=== PATIENT | male | born 1975 | race African-American/Black ===

== ENCOUNTER 2018-06-14 03:29 | Emergency (ER) | payer MEDICAID ==
[~2018-06-14] VITALS: Ht 180.3 cm; Wt 190.5 kg
--- NOTE | 2018-06-14 03:35 | NUR ---
Lew gutiérrez in ED - 06/14/[address] Bae at [facility] for MSE.
--- NOTE | 2018-06-14 03:38 | NUR ---
Dr. Bae at bedside for MSE.
[2018-06-14] MEDS ORDERED: PHENYLEPHRINE 1% (EXTRA STR) NASAL SPRAY NS ONE ×2 (03:41→04:30)
[2018-06-14] MEDS ORDERED: LIDOCAINE 4% TOPICAL 50 ML BOTTLE ONE (03:42)
[2018-06-14] MEDS ORDERED: CLONIDINE HCL 0.1 MG TABLET ONE (03:51)
--- NOTE | 2018-06-14 04:24 | NUR ---
Patient discharged to home in stable conditon. Written and verbal after care instructions given. Patient verbalizes understanding of instructions. Patient ambulated out of ER with steady gait, no acute signs of distress, VSS, all belongings taken.
[2018-06-14] MEDS ORDERED: CLONIDINE HCL 0.1 MG TABLET PO ONE (04:30)
[2018-06-14 04:33] VITALS: BP 151/84
== END 2018-06-14 04:34 | disposition home or self-care (01) ==
LOC: ER 03:30
DX: R04.0 Epistaxis (principal); I10 Essential (primary) hypertension
CPT/HCPCS: 30901; A4663

== ENCOUNTER 2019-10-07 19:22 | Inpatient (IN) | payer MEDICAID, OTHER ==
[~2019-10-07] VITALS: Ht 180.3 cm; Wt 189.1 kg
[2019-10-07] MEDS ORDERED: [UNRECOGNIZED DRUG - REMARK] (19:32)
[2019-10-07] MEDS ORDERED: MORPHINE SULFATE 4 MG/1 ML DISP.SYRIN ONE (19:57)
[2019-10-07] MEDS ORDERED: MORPHINE SULFATE 4 MG/1 ML DISP.SYRIN IM ONE (20:00)
[2019-10-07 20:32] LABS: *AMPHETAMINE, URINE NEGATIVE (NEGATIVE); *BARBITURATE, URINE NEGATIVE (NEGATIVE); *CANNABINOID, URINE POSITIVE (NEGATIVE); *COCCAINE, URINE NEGATIVE (NEGATIVE); *OPIATE, URINE POSITIVE (NEGATIVE); *PHENCYCLIDINE SCREEN,URINE NEGATIVE (NEGATIVE)
[2019-10-07] MEDS ORDERED: LORAZEPAM 2 MG/1 ML VIAL IV ONE ×2 (20:45→23:30)
--- NOTE | 2019-10-07 20:50 | NUR ---
Ultrasound at bedside.
[2019-10-07 20:51] LABS: BASOPHILS # (AUTO) 0.1 K/uL (0.0-8.0); BASOPHILS % (AUTO) 0.5 % (0.0-2.0); EOSINOPHILS # (AUTO) 0.2 K/uL (0.0-0.7); EOSINOPHILS % (AUTO) 0.9 % (0.0-7.0); HEMATOCRIT 43.6 % (36.7-47.1); HEMOGLOBIN 14.2 g/dL (12.5-16.3); LYMPHOCYTES % (AUTO) 21.3 % (20.5-51.5); MEAN CORPUSCULAR HEMOGLOBIN 28.7 uug (23.8-33.4); MEAN CORPUSCULAR HGB CONC 33 g/dL (32.5-36.3); MEAN CORPUSCULAR VOLUME 88.2 fL (73.0-96.2); MONOCYTES # (AUTO) 1.1 K/uL (2.0-10.0); MONOCYTES % (AUTO) 5.8 % (0.0-11.0); NEUTROPHILS # (AUTO) 13.4 K/uL (1.8-8.9); NEUTROPHILS % (AUTO) 71.5 % (38.5-71.5); PLATELET COUNT (AUTO) 291 K/uL (152-348); RED BLOOD CELL COUNT(AUTO) 4.94 MIL/uL (4.06-5.63); WHITE BLOOD COUNT (AUTO) 18.8 K/uL (3.6-10.2)
[2019-10-07 21:06] LABS: ALANINE AMINOTRANSFERASE 17 U/L (16-63); ALKALINE PHOSPHATASE 106 U/L (50-136); ASPARTATE AMINOTRANSFERASE 17 U/L (15-37); BILIRUBIN,TOTAL 0.4 mg/dL (0.2-1.0); CARBON DIOXIDE 33 mmol/L (21-32); CHLORIDE 107 mmol/L (98-107); ETHANOL < 3 MG/DL (0-0); GLUCOSE 132 mg/dL (74-106); TOTAL PROTEIN, SERUM 8.4 g/dL (6.4-8.2)
[2019-10-07 21:20] LABS: CREATININE 1.1 mg/dL (0.6-1.3); UREA NITROGEN, BLOOD 17 mg/dL (7-18)
[2019-10-07] MEDS ORDERED: HYDROMORPHONE 1 MG/1 ML DISP.SYRIN ONE (21:26)
[2019-10-07] MEDS ORDERED: HYDROMORPHONE 1 MG/1 ML DISP.SYRIN IV ONE (21:30)
--- NOTE | 2019-10-07 22:20 | NUR ---
Called EP[facility] to dereje Trejo NP.
--- NOTE | 2019-10-07 22:40 | NUR ---
Patient accepted for admission to [facility] by Be Trejo BUMPER STRAIGHTENER, Diagnosis: Intractable pain. Be Trejo at bedside for MSE.
[2019-10-07] MEDS ORDERED: CLONIDINE HCL 0.1 MG TABLET PO ONE (22:45)
[2019-10-07] MEDS ORDERED: VANCOMYCIN 1G/D5W 200 ML PIGGYBACK IV ONE (22:45)
[2019-10-07] MEDS ORDERED: IV NS 1000 ML 1,000 ML IV ONE ×2 (22:45)
[2019-10-07] MEDS ORDERED: KETAMINE HCL 100 MG in IV NORMAL SALINE 100 ML IV ONE (23:00)
[2019-10-07] MEDS ORDERED: LORAZEPAM 2 MG/1 ML VIAL ONE (23:02)
[2019-10-07] MEDS ORDERED: KETAMINE HCL 500 MG/10 ML INJ ONE (23:03)
[2019-10-07] MEDS ORDERED: MAGNESIUM HYDROXIDE 30 ML LIQUID UDC PO PRN (23:30)
[2019-10-07] MEDS ORDERED: LORAZEPAM 2 MG/1 ML VIAL IV PRN (23:30)
[2019-10-07] MEDS ORDERED: ACETAMINOPHEN 325 MG TABLET PO PRN (23:30)
[2019-10-07] MEDS ORDERED: ONDANSETRON 4 MG/2 ML VIAL IV PRN (23:30)
[2019-10-08] MEDS ORDERED: HYDROMORPHONE 1 MG/1 ML DISP.SYRIN IV ONE (00:15)
[2019-10-08 01:15] VITALS: BP 154/92
--- NOTE | 2019-10-08 01:54 | NUR ---
Report given to Beverley MCDONOUGH Tele.
[2019-10-08] MEDS ORDERED: CLONIDINE-TTS 1 PATCH TD ONE (02:06)
[2019-10-08] MEDS: CLONIDINE-TTS 1 PATCH TD SCH ×2 (02:29→02:31)
[2019-10-08 04:21] VITALS: BP 153/90
--- NOTE | 2019-10-08 05:45 | NUR ---
PATIENT RECEIVED FROM ER. AAOX2. PATIENT DOZING OFF DURING QUESTIONING FOR ADMISSIONS PROCESS. PRIOR CHARTING IN ER OBSERVED. IV ON LEFT HAND 20G. NO S/S OF ACUTE DISTRESS. V/S STABLE. BP STABLE ON RN SHIFT SINCE RECEIVING FROM ER. SAFETY PRECAUTIONS IN PLACE. XEROFORM AND GAUZE WRAPPED ON LEFT CALF ON OPEN ULCER. WOUND CONSULT PENDING. MEDICATIONS ADMINISTERED. ATIVAN ADMINISTERED. DILAUDID ADMINISTERED AND UNABLE TO SCAN AT CORRECT TIME. COMPUTER SHUT OFF AFTER SCANNING OF MEDICATION AND UNSAVED. MEDICATION CHECKED. EXPIRATION CHECKED. GAIT STEADY AND BRP. WILL CONTINUE TO MONITOR AND ASSESS.
[2019-10-08 06:39] LABS: BASOPHILS # (AUTO) 0.1 K/uL (0.0-8.0); BASOPHILS % (AUTO) 0.3 % (0.0-2.0); EOSINOPHILS # (AUTO) 0.1 K/uL (0.0-0.7); EOSINOPHILS % (AUTO) 0.4 % (0.0-7.0); HEMATOCRIT 39.8 % (36.7-47.1); LYMPHOCYTES # (AUTO) 3.2 K/uL (20.0-40.0); MEAN CORPUSCULAR HEMOGLOBIN 28.8 uug (23.8-33.4); MEAN CORPUSCULAR HGB CONC 33 g/dL (32.5-36.3); MEAN CORPUSCULAR VOLUME 88.2 fL (73.0-96.2); MONOCYTES # (AUTO) 1.6 K/uL (2.0-10.0); MONOCYTES % (AUTO) 7.6 % (0.0-11.0); NEUTROPHILS # (AUTO) 16.4 K/uL (1.8-8.9); NEUTROPHILS % (AUTO) 76.7 % (38.5-71.5); PLATELET COUNT (AUTO) 285 K/uL (152-348); RED BLOOD CELL COUNT(AUTO) 4.51 MIL/uL (4.06-5.63); WHITE BLOOD COUNT (AUTO) 21.4 K/uL (3.6-10.2)
[2019-10-08 06:50] LABS: BILIRUBIN,TOTAL 0.5 mg/dL (0.2-1.0); CREATININE 0.9 mg/dL (0.6-1.3); MAGNESIUM 1.8 mg/dL (1.8-2.4); PHOSPHOROUS 3.9 mg/dL (2.5-4.9); POTASSIUM 3.6 mmol/L (3.5-5.1); TOTAL PROTEIN, SERUM 7.4 g/dL (6.4-8.2)
[2019-10-08 06:56] LABS: THYROID STIMULATING HORMONE 1.049 mIU/mL (0.358-3.740)
--- NOTE | 2019-10-08 07:00 | NUR ---
Received patient calm and lying in bed. tax analyst is on and sinus tachycardic. Left hand 22G IV patent. No signs and symptoms of acute distress. Right ankle wound covered. Safety precautions initiated and will continue to monitor.
--- NOTE | 2019-10-08 08:58 | NUR ---
Clinical Pharmacy Note: Vancomycin Dosing per Pharmacy Subjective: To start Vancomycin IV on this 44 male patient for cellulitis Objective: BUN 14/Scr 0.9 WBC 21.4 Temperature 98.7 ht 180 cm wt 189 kg Assessment/Plan: Will start vanco 2500mg IVPB q9h for predicted vanco trough level of 15 mcg/ml a steady state. 1st dose today at 0900. Will order vanco trough level before 4th dose (not yet ordered). Will follow
[2019-10-08] MEDS: VANCOMYCIN IV 2,500 MG in IV DEXTROSE 5% 500 ML IV SCH ×2 (09:15→17:06)
--- NOTE | 2019-10-08 10:43 | NUR ---
SEEN BY HOSPITALIST RODRIGO REVIEWED PLAN OF CARE. CALLED FOR ID FOLLOW-UP FOR CELLULITIS RIGHT LEG. CONTINUE IV ANTIBIOTICS ORDERED
[2019-10-08] MEDS ORDERED: IV NS 1000 ML 1,000 ML IV ONE (10:45)
[2019-10-08] MEDS ORDERED: AMLO10TA7 PO (10:53)
[2019-10-08] MEDS ORDERED: LOSA100T3 PO (10:53)
[2019-10-08] MEDS ORDERED: METO25TA3 PO (10:53)
[2019-10-08] MEDS ORDERED: FUROSEMIDE 20 MG/2 ML VIAL IV ONE (11:00)
[2019-10-08] MEDS: LOSARTAN POTASSIUM 50 MG TABLET PO SCH (11:21)
[2019-10-08] MEDS: AMLODIPINE 10 MG TABLET PO SCH (11:21)
[2019-10-08] MEDS: METOPROLOL SUCCINATE XL 25 MG TAB.SR.24H PO SCH (11:21)
[2019-10-08 12:00] VITALS: BP 148/87
[2019-10-08] MEDS: HYDROCODONE/APAP 5-325MG TABLET PO PRN ×2 (12:20→17:02)
[2019-10-08 16:33] VITALS: BP 169/86
[2019-10-08] MEDS: hydrALAZINE HCL 20 MG/1 ML VIAL IV PRN (16:57)
--- NOTE | 2019-10-08 17:23 | NUR ---
NO REACTION FROM ANTIBIOTIC, RIGHT LEG CELLULITIS DRAINING LARGE AMOUNT OF YELLOW THICK DRAINAGE. DRESSING CHANGE ORDERED PENDING WOUND CONSULT. IV ANTIBIOTIC VANCO PER PHARMACY TO DOSE. NO REACTION NOTED
--- NOTE | 2019-10-08 19:30 | NUR ---
received patient lying in bed sleeping. vaco running from morning shift. once completed will follow up with one dose of NS 1L. PIV in tact and patent. AAOX3. BRP with minimal assist. c/o of pain in the right leg. wound care provided on previous shift. will follow up. wound care pending. safety measure in place. call light in place, side rails upx2 and bed alarm on. will continue to monitor and assess.
[2019-10-08] MEDS: HYDROMORPHONE 1 MG/1 ML DISP.SYRIN IV PRN (20:12)
[2019-10-08 20:36] VITALS: BP 156/84
[2019-10-09] MEDS: VANCOMYCIN IV 2,500 MG in IV DEXTROSE 5% 500 ML IV SCH ×3 (02:31→20:10)
[2019-10-09] MEDS: HYDROMORPHONE 1 MG/1 ML DISP.SYRIN IV PRN (03:07)
[2019-10-09 05:31] VITALS: BP 151/88
--- NOTE | 2019-10-09 07:40 | NUR ---
AWAKE ALERT AND VERBALLY RESPONSIVE , NO SS OF SOB OR DISTRESS AWAITING ID CONSULT FOR CELLULITIS AND ELEVATED WBC. NOTED LOW GRADE FEVER WILL FOLLOW-UP WITH HOSPITALIST
--- NOTE | 2019-10-09 07:53 | NUR ---
SEEN BY MEDICAL HOSPITALIST SEE NOTES.
[2019-10-09] MEDS: LOSARTAN POTASSIUM 50 MG TABLET PO SCH (08:01)
[2019-10-09] MEDS: HYDROCODONE/APAP 5-325MG TABLET PO PRN ×3 (08:01→22:23)
[2019-10-09] MEDS: METOPROLOL SUCCINATE XL 25 MG TAB.SR.24H PO SCH (08:02)
[2019-10-09] MEDS: AMLODIPINE 10 MG TABLET PO SCH (08:02)
[2019-10-09 11:42] VITALS: BP 136/70
[2019-10-09 11:47] LABS: BASOPHILS # (AUTO) 0.1 K/uL (0.0-8.0); BASOPHILS % (AUTO) 0.5 % (0.0-2.0); EOSINOPHILS # (AUTO) 0.1 K/uL (0.0-0.7); EOSINOPHILS % (AUTO) 0.5 % (0.0-7.0); HEMATOCRIT 42.2 % (36.7-47.1); HEMOGLOBIN 13.9 g/dL (12.5-16.3); LYMPHOCYTES # (AUTO) 3.6 K/uL (20.0-40.0); LYMPHOCYTES % (AUTO) 21.9 % (20.5-51.5); MEAN CORPUSCULAR HEMOGLOBIN 28.9 uug (23.8-33.4); MEAN CORPUSCULAR HGB CONC 33 g/dL (32.5-36.3); MEAN CORPUSCULAR VOLUME 88.1 fL (73.0-96.2); MONOCYTES # (AUTO) 1.2 K/uL (2.0-10.0); MONOCYTES % (AUTO) 7.6 % (0.0-11.0); NEUTROPHILS # (AUTO) 11.3 K/uL (1.8-8.9); NEUTROPHILS % (AUTO) 69.5 % (38.5-71.5); PLATELET COUNT (AUTO) 272 K/uL (152-348); RED BLOOD CELL COUNT(AUTO) 4.79 MIL/uL (4.06-5.63); WHITE BLOOD COUNT (AUTO) 16.3 K/uL (3.6-10.2)
[2019-10-09 11:57] LABS: BILIRUBIN,TOTAL 0.8 mg/dL (0.2-1.0); POTASSIUM 3.7 mmol/L (3.5-5.1); TOTAL PROTEIN, SERUM 8.2 g/dL (6.4-8.2)
--- NOTE | 2019-10-09 12:00 | NUR ---
NO ACUTE CHANGE, UP AD SARAH INDEPENDENTLY. PLEASANT AND COOPERATIVE. WOUND STILL DRAINING LARGE AMOUNT OF YELLOW DRAINAGE. AFEBRILE
--- NOTE | 2019-10-09 13:01 | NUR ---
Clinical Pharmacy Note: Vancomycin Dosing per Pharmacy Subjective: To start Vancomycin IV on this 44 male patient for cellulitis Objective: BUN 11/Scr 1.0 WBC 16.3 Temperature 99 ht 180 cm wt 189 kg Trough today at 1138: 15.4 Assessment/Plan: As trough therapeutic, will continue vanco 2500mg IVPB q9h for now. Will continue to follow and adjust or repeat trough if condition were to change or patient on prolonged course. Will continue to follow
[2019-10-09 15:54] VITALS: BP 154/84
--- NOTE | 2019-10-09 17:53 | NUR ---
CONTINUE IV VANCOMYCIN ORDERED THRU IV, NO SS OF ALLERGY REACTION. CONTINUE PAIN MANAGEMENT. STILL WAITING FOR ID CONSULT
--- NOTE | 2019-10-09 19:38 | NUR ---
Received patient awake and alert in bed, A/Ox4. no signs of acute distress noted. Complained of some pain to the right lower leg, PRN pain medication already given from day shift and says it is effective. No SOB. Dressing to the right lower extremity is intact and patent. ELGIN Morocho seen and examined patient. NNO noted. Heplock on the left hand is intact and patent. Safety measures initiated. Bed is low and locked, call light within reach. Will continue to monitor.
[2019-10-09 20:22] VITALS: BP 147/79
[2019-10-10] MEDS: HYDROMORPHONE 1 MG/1 ML DISP.SYRIN IV PRN ×3 (02:32→20:01)
[2019-10-10] MEDS: VANCOMYCIN IV 2,500 MG in IV DEXTROSE 5% 500 ML IV SCH ×3 (05:40→23:38)
[2019-10-10 05:49] VITALS: BP 159/85
[2019-10-10 06:21] LABS: BASOPHILS # (AUTO) 0.1 K/uL (0.0-8.0); BASOPHILS % (AUTO) 0.7 % (0.0-2.0); EOSINOPHILS % (AUTO) 0.3 % (0.0-7.0); HEMATOCRIT 39.2 % (36.7-47.1); HEMOGLOBIN 12.9 g/dL (12.5-16.3); LYMPHOCYTES # (AUTO) 3.3 K/uL (20.0-40.0); MEAN CORPUSCULAR HEMOGLOBIN 28.8 uug (23.8-33.4); MEAN CORPUSCULAR HGB CONC 33 g/dL (32.5-36.3); MEAN CORPUSCULAR VOLUME 87.6 fL (73.0-96.2); MONOCYTES # (AUTO) 1.5 K/uL (2.0-10.0); MONOCYTES % (AUTO) 9.9 % (0.0-11.0); NEUTROPHILS # (AUTO) 9.9 K/uL (1.8-8.9); NEUTROPHILS % (AUTO) 67.1 % (38.5-71.5); PLATELET COUNT (AUTO) 267 K/uL (152-348); RED BLOOD CELL COUNT(AUTO) 4.48 MIL/uL (4.06-5.63); WHITE BLOOD COUNT (AUTO) 14.8 K/uL (3.6-10.2)
[2019-10-10 06:36] LABS: CREATININE 0.9 mg/dL (0.6-1.3); POTASSIUM 3.3 mmol/L (3.5-5.1)
[2019-10-10] MEDS ORDERED: POTASSIUM CHLORIDE 20 MEQ TAB.PRT.SR PO ONE (07:30)
--- NOTE | 2019-10-10 07:56 | NUR ---
Clinical Pharmacy Note: Vancomycin Dosing per Pharmacy Subjective: To continue Vancomycin IV on this 44 male patient for cellulitis Objective: BUN 9/Scr 0.9 WBC 14.8 Temperature 98.9 ht 180 cm wt 189 kg Trough on 10/08 at 1138: 15.4 Assessment/Plan: As trough therapeutic, will continue same dose of vanco 2500mg IVPB q9h for now. Will continue to follow and adjust or repeat trough if condition were to change or patient on prolonged course. Will continue to follow
[2019-10-10] MEDS: HYDROCODONE/APAP 5-325MG TABLET PO PRN (08:16)
[2019-10-10] MEDS: LOSARTAN POTASSIUM 50 MG TABLET PO SCH (08:17)
[2019-10-10] MEDS: METOPROLOL SUCCINATE XL 25 MG TAB.SR.24H PO SCH (08:17)
[2019-10-10] MEDS: AMLODIPINE 10 MG TABLET PO SCH (08:20)
[2019-10-10 11:30] VITALS: BP 164/96
--- NOTE | 2019-10-10 12:51 | NUR ---
WOUND CARE CONSULT: PT STATES DOES NOT WANT RT LOWER LEG DRESSING REMOVED AT THIS TIME. PT STATES IS DE-TOXING FROM NICOTINE AND DOES NOT FEEL WELL. TEACHER INDUSTRIAL ARTS NOTIFIED. RECOMMEND DPM CONSULT. DR SINGLETARY NOTIFIED OF CONSULT REQUEST. RECOMMENDATIONS MADE FOR SKIN PROTECTION. DISCUSSED WITH NURSING STAFF. PT IS CONTINENT AND INDEPENDENT WITH BED MOBILITY. PT REFUSES BARIATRIC BED. WILL SEE PRN. IN AGREEMENT WITH PLAN OF CARE.
[2019-10-10] MEDS: NICOTINE 21 MG/24HR PATCH TD SCH (15:09)
[2019-10-10 16:00] VITALS: BP 131/78
--- NOTE | 2019-10-10 20:00 | NUR ---
Received patient awake and alert. Patient shows no signs or symptoms of distress at this time. Patient does complain of having 10/10 pain at this time. Blood pressure checked and is 173/101. Patient due for PRN pain medication. Bed set to lowest position. Call light within reach. Side rails x2 are up. Will Addendum: 10/10/19 at 2130 by NUVIA MOTA RN Pain medication to be administered. Blood pressure to be rechecked. Will continue to monitor patient.
[2019-10-10 20:38] VITALS: BP 162/101
--- NOTE | 2019-10-10 21:00 | NUR ---
Blood pressure rechecked and is 150/81. Patient resting comfortably in bed. Will continue to monitor patient.
[2019-10-10 21:04] VITALS: BP 150/81
--- NOTE | 2019-10-10 23:15 | NUR ---
Offered to change dressing on RLE but patient declines to change dressing at this time. As per patient, he reports that wound care nurse changed the dressing earlier today and refuses to have it changed at this time. Will endorse to day shift nurse.
[2019-10-11] MEDS: HYDROMORPHONE 1 MG/1 ML DISP.SYRIN IV PRN ×4 (00:01→14:01)
[2019-10-11 04:00] VITALS: BP 156/91
--- NOTE | 2019-10-11 06:16 | NUR ---
Patient shows no signs or symptoms of distress at this time. Vital signs stable. Patient to be endorsed to day shift nurse in stable condition.
[2019-10-11 06:30] LABS: CREATININE 0.9 mg/dL (0.6-1.3); POTASSIUM 3.4 mmol/L (3.5-5.1)
[2019-10-11 06:37] LABS: BASOPHILS # (AUTO) 0.1 K/uL (0.0-8.0); BASOPHILS % (AUTO) 0.4 % (0.0-2.0); EOSINOPHILS # (AUTO) 0.1 K/uL (0.0-0.7); EOSINOPHILS % (AUTO) 0.8 % (0.0-7.0); HEMATOCRIT 40.7 % (36.7-47.1); HEMOGLOBIN 13.7 g/dL (12.5-16.3); LYMPHOCYTES # (AUTO) 2.7 K/uL (20.0-40.0); MEAN CORPUSCULAR HEMOGLOBIN 29.2 uug (23.8-33.4); MEAN CORPUSCULAR HGB CONC 34 g/dL (32.5-36.3); MEAN CORPUSCULAR VOLUME 86.9 fL (73.0-96.2); MONOCYTES # (AUTO) 1.6 K/uL (2.0-10.0); MONOCYTES % (AUTO) 12.7 % (0.0-11.0); NEUTROPHILS # (AUTO) 8.4 K/uL (1.8-8.9); NEUTROPHILS % (AUTO) 65.1 % (38.5-71.5); PLATELET COUNT (AUTO) 260 K/uL (152-348); RED BLOOD CELL COUNT(AUTO) 4.69 MIL/uL (4.06-5.63); WHITE BLOOD COUNT (AUTO) 12.9 K/uL (3.6-10.2)
--- NOTE | 2019-10-11 07:45 | NUR ---
Clinical Pharmacy Note: Vancomycin Dosing per Pharmacy Subjective: To continue Vancomycin IV on this 44 male patient for cellulitis Objective: BUN 8/Scr 0.9 WBC 12.9 Temperature 98.6 ht 180 cm wt 189 kg Trough on 10/08 at 1138: 15.4 Assessment/Plan: As last trough (10/08) therapeutic, will continue same dose of vanco 2500mg IVPB q9h for now. Will continue to follow and adjust or repeat trough if condition were to change or patient on prolonged course. Will continue to follow
[2019-10-11 08:00] VITALS: BP 157/96
[2019-10-11] MEDS: VANCOMYCIN IV 2,500 MG in IV DEXTROSE 5% 500 ML IV SCH ×2 (08:00→17:36)
[2019-10-11] MEDS: LOSARTAN POTASSIUM 50 MG TABLET PO SCH (08:01)
[2019-10-11] MEDS: NICOTINE 21 MG/24HR PATCH TD SCH (08:01)
[2019-10-11] MEDS: METOPROLOL SUCCINATE XL 25 MG TAB.SR.24H PO SCH (08:02)
[2019-10-11] MEDS: AMLODIPINE 10 MG TABLET PO SCH (08:02)
[2019-10-11] MEDS: HYDROCODONE/APAP 5-325MG TABLET PO PRN ×3 (08:03→20:37)
[2019-10-11] MEDS ORDERED: POTASSIUM CHLORIDE 20 MEQ TAB.PRT.SR PO ONE (09:00)
[2019-10-11 12:00] VITALS: BP 167/73
[2019-10-11] MEDS: hydrALAZINE HCL 20 MG/1 ML VIAL IV PRN ×2 (12:13→16:34)
--- NOTE | 2019-10-11 13:00 | NUR ---
A call from [facility] Mri department and as informed patient unable to have procedure orders due to weight. Ordering DNP called and notified by charge account clerk.
--- NOTE | 2019-10-11 13:01 | NUR ---
MRI JUST GOT APPROVED BY DR. SMITH.
--- NOTE | 2019-10-11 13:21 | NUR ---
UNABLE TO DO MRI PATIENT'S WEIGHT EXCEED THE TABLE LIMITED.
[2019-10-11 16:00] VITALS: BP 170/90
[2019-10-11 18:00] VITALS: BP 144/82
[2019-10-11 20:00] VITALS: BP 133/67
--- NOTE | 2019-10-11 20:00 | NUR ---
Received patient awake and alert. Patient shows no signs or symptoms of distress at this time. Vital signs stable. Pt complains of having 7/10 pain at this time. PRN pain medication to be give when due at 2029. Unable to take photo of right lower ext ulcer. Dr. Stringer does not want wound dressing opened until she can evaluate it tomorrow afternoon. Bed set to lowest position. Call light within reach. Side rails x2 are up. Will continue to monitor patient.
[2019-10-12] MEDS: HYDROMORPHONE 1 MG/1 ML DISP.SYRIN IV PRN ×4 (01:10→19:58)
[2019-10-12] MEDS: VANCOMYCIN IV 2,500 MG in IV DEXTROSE 5% 500 ML IV SCH ×2 (02:18→19:43)
[2019-10-12 04:18] VITALS: BP 152/78
--- NOTE | 2019-10-12 06:36 | NUR ---
Patient shows no signs or symptoms of distress at this time. Vital sign stable. Patient resting comfortably in bed. Will endorse patient to day shift nurse in stable condition.
[2019-10-12 06:45] LABS: BASOPHILS # (AUTO) 0.1 K/uL (0.0-8.0); BASOPHILS % (AUTO) 0.5 % (0.0-2.0); EOSINOPHILS # (AUTO) 0.1 K/uL (0.0-0.7); EOSINOPHILS % (AUTO) 0.7 % (0.0-7.0); HEMATOCRIT 42.1 % (36.7-47.1); HEMOGLOBIN 13.9 g/dL (12.5-16.3); LYMPHOCYTES # (AUTO) 3.3 K/uL (20.0-40.0); LYMPHOCYTES % (AUTO) 25.7 % (20.5-51.5); MEAN CORPUSCULAR HEMOGLOBIN 29.1 uug (23.8-33.4); MEAN CORPUSCULAR HGB CONC 33 g/dL (32.5-36.3); MONOCYTES # (AUTO) 1.8 K/uL (2.0-10.0); MONOCYTES % (AUTO) 13.9 % (0.0-11.0); NEUTROPHILS # (AUTO) 7.7 K/uL (1.8-8.9); NEUTROPHILS % (AUTO) 59.2 % (38.5-71.5); PLATELET COUNT (AUTO) 324 K/uL (152-348); RED BLOOD CELL COUNT(AUTO) 4.78 MIL/uL (4.06-5.63)
[2019-10-12 06:56] LABS: CREATININE 1.1 mg/dL (0.6-1.3); MAGNESIUM 2.3 mg/dL (1.8-2.4); PHOSPHOROUS 4.4 mg/dL (2.5-4.9); POTASSIUM 3.6 mmol/L (3.5-5.1)
--- NOTE | 2019-10-12 08:00 | NUR ---
Received pt in bed asleep but arousable to name and touch. On O2 @ 1L for supplemental since pt complained of slight SOB. JOEY midline flushed and patent. Dressing on right calf noted and pt complained 10/10 pain on the area. Bed locked in lowest position with siderails 2x up. Call light and phone within reach
[2019-10-12] MEDS: NICOTINE 21 MG/24HR PATCH TD SCH (09:00)
--- NOTE | 2019-10-12 09:00 | NUR ---
Wound care not done since Dr. Stringer wants to see wound before wound care
[2019-10-12] MEDS: LOSARTAN POTASSIUM 50 MG TABLET PO SCH (09:31)
[2019-10-12] MEDS: AMLODIPINE 10 MG TABLET PO SCH (09:32)
[2019-10-12] MEDS: METOPROLOL SUCCINATE XL 25 MG TAB.SR.24H PO SCH (09:32)
[2019-10-12] MEDS: HYDROCODONE/APAP 5-325MG TABLET PO PRN ×3 (09:33→22:17)
[2019-10-12 12:00] VITALS: BP 141/59
--- NOTE | 2019-10-12 12:27 | NUR ---
Clinical Pharmacy Note: Vancomycin Dosing per Pharmacy Subjective: To continue Vancomycin IV on this 44 male patient for cellulitis Objective: BUN 4/Scr 1.1 WBC 13 Temperature 98.2 ht 180 cm wt 189 kg Trough on 10/08 at 1138: 15.4 Trough on 10/11 at 1130: 21.5 Assessment/Plan: Since vanco trough today is 21.5 mcg/ml, will change dose to vanco 2500mg IVPB q11h for predicted vanco trough level of 15 mcg/ml at steady state. 1st dose today at 1700. Plan to order vanco trough level before 4th dose (not yet ordered). Will continue to follow
--- NOTE | 2019-10-12 13:45 | NUR ---
Dr. Stringer came in to check wound on right calf, wound culture done. Cleaned and dressing change done by MD. Pt was in severe pain during procedure, Dilaudid given after procedure per patient's request. Picture taken and placed in chart
[2019-10-12 16:01] VITALS: BP 135/63
--- NOTE | 2019-10-12 17:28 | NUR ---
JOEY midline got clogged. Called musical instrument supervisor for midline insertion
[2019-10-12 18:21] LABS: *BILIRUBIN,URIN NEGATIVE (NEGATIVE); *BLOOD, URINE NEGATIVE (NEGATIVE); *CLARITY,URINE CLEAR (CLEAR); *COLOR,URINE YELLOW (YELLOW); *KETONES,URINE NEGATIVE (NEGATIVE); LEUKOCYTE ESTERASE ,URINE NEGATIVE (NEGATIVE); NITRITE, URINE NEGATIVE (NEGATIVE); PH,URINE 6.5 (5.0-8.0); UGLUCOSE NEGATIVE (NEGATIVE)
--- NOTE | 2019-10-12 18:39 | NUR ---
Patient had 10/10 pain on right lower leg after wound change. Pt had been crying, moaning and very restless. No SOB or distress noted at this time. Vancomycin for 1700 not given due to clogged midline, Pharmacy informed. Dressing on right lower leg intact. Bed locked in lowest position with siderails 2x up. Call light and phone within reach.
--- NOTE | 2019-10-12 19:20 | NUR ---
Received patient was lying in bed. AAOX4. in no acute distress. Patient reported pain of 10/10 on right calf area. Will provide pain medication per order. Patient did not exhibit any signs of SOB on room air. Right calf with dressing dry and intact. Right midline intact and patent currently running Vancomycin. Left midline not patent was removed. Bed in lowest position and side rails up x2. Safety measure initiated and call light within reach.
[2019-10-12 20:09] VITALS: BP 135/81
[2019-10-12] MEDS: CEFEPIME HCL 1 G in IV DEXTROSE 5% 50 ML IV SCH (22:34)
--- NOTE | 2019-10-12 22:44 | NUR ---
Patient reported little to no relief from current pain medication. On Dilaudid 1mg IV [id number] PRN and [place] 5/325mg PO q4hrs PRN. Notified Héctor and informed of patient current condition with order to increase Dilaudid frequency to Q3HRS. Order noted and will carry out.
[2019-10-13] MEDS: HYDROMORPHONE 1 MG/1 ML DISP.SYRIN IV PRN ×3 (00:41→21:02)
[2019-10-13] MEDS: HYDROCODONE/APAP 5-325MG TABLET PO PRN ×2 (02:48→23:04)
[2019-10-13] MEDS: VANCOMYCIN IV 2,500 MG in IV DEXTROSE 5% 500 ML IV SCH ×2 (03:55→13:37)
[2019-10-13 04:03] VITALS: BP 144/79
--- NOTE | 2019-10-13 06:07 | NUR ---
Patient slept intermittently. Dilaudid and [place] PRN per order given for complain of pain. On IV antibiotics with no signs of adverse effects. Right midline intact and patent. Patient has a debridement procedure scheduled for this afternoon and has been compliant with NPO status since midnight. Right left dressing remains dry and intact. Needs attended to and met. Safety measure maintained and call dias within reached.
[2019-10-13] MEDS: CEFEPIME HCL 1 G in IV DEXTROSE 5% 50 ML IV SCH ×3 (06:21→22:27)
[2019-10-13 06:54] LABS: BASOPHILS % (AUTO) 0.2 % (0.0-2.0); EOSINOPHILS # (AUTO) 0.1 K/uL (0.0-0.7); HEMATOCRIT 42.6 % (36.7-47.1); HEMOGLOBIN 13.8 g/dL (12.5-16.3); LYMPHOCYTES # (AUTO) 2.6 K/uL (20.0-40.0); LYMPHOCYTES % (AUTO) 19.7 % (20.5-51.5); MEAN CORPUSCULAR HEMOGLOBIN 28.7 uug (23.8-33.4); MEAN CORPUSCULAR HGB CONC 32 g/dL (32.5-36.3); MEAN CORPUSCULAR VOLUME 88.8 fL (73.0-96.2); MONOCYTES # (AUTO) 1.5 K/uL (2.0-10.0); MONOCYTES % (AUTO) 11.6 % (0.0-11.0); NEUTROPHILS % (AUTO) 67.5 % (38.5-71.5); PLATELET COUNT (AUTO) 304 K/uL (152-348); WHITE BLOOD COUNT (AUTO) 13.3 K/uL (3.6-10.2)
[2019-10-13 07:15] LABS: CREATININE 1.2 mg/dL (0.6-1.3); MAGNESIUM 2.3 mg/dL (1.8-2.4); PHOSPHOROUS 4.6 mg/dL (2.5-4.9); POTASSIUM 3.7 mmol/L (3.5-5.1)
--- NOTE | 2019-10-13 09:00 | NUR ---
Received patient in room awake, Pt. is AAO x 4. NO acute distress in RA. NO complains of pain at this time. Mid line on right upper arm intact and patent. Patient aware of scheduled debridement procedure for Right leg; with dressing in place, dry and intact. NPO at this time. IV NS running at 10cc. Safety measures in place and will continue with care.
[2019-10-13] MEDS: AMLODIPINE 10 MG TABLET PO SCH (10:02)
[2019-10-13] MEDS: METOPROLOL SUCCINATE XL 25 MG TAB.SR.24H PO SCH (10:02)
[2019-10-13] MEDS: LOSARTAN POTASSIUM 50 MG TABLET PO SCH (10:02)
[2019-10-13] MEDS: NICOTINE 21 MG/24HR PATCH TD SCH (10:03)
--- NOTE | 2019-10-13 10:45 | NUR ---
Patient verbalized he was not sure regarding the type of anesthesia that was going to get used during debridement. Patient seen by Dr. Anaya and discussed plan of treatment and procedure.
[2019-10-13 12:00] VITALS: BP 136/80
--- NOTE | 2019-10-13 12:00 | NUR ---
Patient stated he is more calmer and understands the procedures after speaking with Dr. Anaya. NO complains of pain at this time and will continue to monitor patient.
--- NOTE | 2019-10-13 12:10 | NUR ---
Clinical Pharmacy Note: Vancomycin Dosing per Pharmacy Subjective: To continue Vancomycin IV on this 44 male patient for cellulitis Objective: BUN 13/Scr 1.2 WBC 13.3 Temperature 97.8 ht 180 cm wt 189 kg Trough on 10/08 at 1138: 15.4 Trough on 10/11 at 1130: 21.5 Assessment/Plan: Since renal function is stable, will continue vanco 2500mg IVPB q11h for predicted vanco trough level of 15 mcg/ml at steady state. 3rd dose today at 1500. Plan to order vanco trough level before 4th dose (ordered for tomorrow at 0130). Will continue to follow Addendum: 10/13/19 at 1703 by IRMA DAVENPORT 3rd dose given earlier than scheduled(scheduled to give at 1500 but given at 1337) per MD order(MD ordered to give prior to debridement in OR). Will reschedule trough prior to tomorrow dose( by 5th dose) at 1230.
[2019-10-13] MEDS ORDERED: POLYMYXIN B SULFATE 500,000 UNITS, BACITRACIN 50,000 UNITS, NORMAL SALINE 20 ML MC ONE ×3 (13:15)
--- NOTE | 2019-10-13 13:45 | NUR ---
DATE 10/09/19 1145 PATIENT WAS GIVEN DILAUDID 1MG IVP FOR RIGHT LEG PAIN BUT WERE NOT ABLE TO SCAN MEDS. NURSE PLANT AND EQUIPMENT WORKER AND JOSE FROM PHARMACY NOTIFIED
--- NOTE | 2019-10-13 13:50 | NUR ---
Patient taken to OR, No acute distress noted.
[2019-10-13] MEDS ORDERED: MIDAZOLAM HCL 10 MG/2 ML VIAL ONE (14:00)
[2019-10-13] MEDS ORDERED: FENTANYL CITRATE 250 MCG/5 ML AMPUL ONE (14:01)
[2019-10-13] MEDS ORDERED: KETAMINE HCL 500 MG/10 ML INJ ONE (14:01)
[2019-10-13] MEDS ORDERED: BUPIVACAINE/EPI PF 0.5% 10 ML VIAL ONE (14:20)
[2019-10-13] MEDS ORDERED: BUPIVACAINE PF 0.5% 30 ML VIAL ONE (14:55)
[2019-10-13] MEDS ORDERED: FLUMAZENIL 0.5 MG/5 ML VIAL ONE (15:09)
[2019-10-13] MEDS ORDERED: KETOROLAC TROMETHAMINE 30 MG INJ ONE (15:30)
[2019-10-13] MEDS ORDERED: FENTANYL CITRATE 100 MCG/2 ML AMPUL ONE (15:31)
[2019-10-13] MEDS ORDERED: ONDANSETRON 4 MG/2 ML VIAL ONE (16:30)
[2019-10-13] MEDS ORDERED: ESMOLOL HCL 100 MG/10 ML VIAL IV ONE (16:30)
[2019-10-13] MEDS ORDERED: DEXAMETHASONE SOD PHOSPHATE 4 MG INJ ONE (16:30)
[2019-10-13] MEDS ORDERED: SUCCINYLCHOLINE CHLORIDE 200 MG/10 ML VIAL ONE (16:30)
--- NOTE | 2019-10-13 16:40 | NUR ---
Patient came back from OR, patient s/p right lower leg debridement. Site with dressing intact and dry. No complains of pain at this time. Patient on 02 NC at 2lpm with O2 saturation of 98% all other VS stable. With an order to resume previous diet. patient in stable condition at this time and will continue with care.
[2019-10-13 17:00] VITALS: BP 123/67
--- NOTE | 2019-10-13 18:12 | NUR ---
IV Vanco running as ordered. Mid line on BRYN intact and patent.
--- NOTE | 2019-10-13 19:02 | NUR ---
Patient in stable condition at this time, sleeping . No acute distress. Vital signs stable and will continue with care.
--- NOTE | 2019-10-13 19:32 | NUR ---
End of shift report given to PM nurse.
[2019-10-13 20:00] VITALS: BP 123/83
[2019-10-14] MEDS: HYDROMORPHONE 1 MG/1 ML DISP.SYRIN IV PRN ×5 (00:19→22:41)
[2019-10-14] MEDS: VANCOMYCIN IV 2,500 MG in IV DEXTROSE 5% 500 ML IV SCH ×2 (02:09→14:10)
[2019-10-14 04:00] VITALS: BP 159/87
[2019-10-14] MEDS: HYDROCODONE/APAP 5-325MG TABLET PO PRN ×2 (05:04→09:15)
[2019-10-14] MEDS: CEFEPIME HCL 1 G in IV DEXTROSE 5% 50 ML IV SCH ×3 (05:50→22:40)
[2019-10-14 06:56] LABS: BASOPHILS % (AUTO) 0.1 % (0.0-2.0); HEMATOCRIT 41.5 % (36.7-47.1); HEMOGLOBIN 14.1 g/dL (12.5-16.3); LYMPHOCYTES # (AUTO) 2.5 K/uL (20.0-40.0); LYMPHOCYTES % (AUTO) 11.6 % (20.5-51.5); MEAN CORPUSCULAR HEMOGLOBIN 29.6 uug (23.8-33.4); MEAN CORPUSCULAR HGB CONC 34 g/dL (32.5-36.3); MEAN CORPUSCULAR VOLUME 87.2 fL (73.0-96.2); MONOCYTES # (AUTO) 1.7 K/uL (2.0-10.0); MONOCYTES % (AUTO) 7.8 % (0.0-11.0); NEUTROPHILS # (AUTO) 17.3 K/uL (1.8-8.9); NEUTROPHILS % (AUTO) 80.5 % (38.5-71.5); PLATELET COUNT (AUTO) 303 K/uL (152-348); RED BLOOD CELL COUNT(AUTO) 4.76 MIL/uL (4.06-5.63); WHITE BLOOD COUNT (AUTO) 21.5 K/uL (3.6-10.2)
[2019-10-14 06:57] LABS: MAGNESIUM 2.6 mg/dL (1.8-2.4); PHOSPHOROUS 4.8 mg/dL (2.5-4.9); POTASSIUM 4.5 mmol/L (3.5-5.1)
--- NOTE | 2019-10-14 07:00 | NUR ---
Patient slept intermittently. AA/Ox4. Dilaudid and [place] PRN per order given for complain of pain. On IV antibiotics with no signs of adverse effects. Right midline intact and patent. Right left dressing remains dry and intact from debridement. Needs attended to and met. Safety measure maintained and call dias within reached.
[2019-10-14] MEDS: LOSARTAN POTASSIUM 50 MG TABLET PO SCH (08:09)
[2019-10-14] MEDS: NICOTINE 21 MG/24HR PATCH TD SCH (08:09)
[2019-10-14] MEDS: METOPROLOL SUCCINATE XL 25 MG TAB.SR.24H PO SCH (08:09)
[2019-10-14] MEDS: AMLODIPINE 10 MG TABLET PO SCH (08:09)
[2019-10-14] MEDS ORDERED: HYDROMORPHONE 2 MG/1 ML DISP.SYRIN IM ONE (10:15)
[2019-10-14 11:42] VITALS: BP 135/69
[2019-10-14 16:00] VITALS: BP 121/63
--- NOTE | 2019-10-14 16:31 | NUR ---
Clinical Pharmacy Note: Vancomycin Dosing per Pharmacy Subjective: To continue Vancomycin IV on this 44 male patient for cellulitis Objective: BUN 15/Scr 1.0 WBC 21.5 Temperature 98.4 ht 180 cm wt 189 kg Trough on 10/08 at 1138: 15.4 Trough on 10/11 at 1130: 21.5 Trough today at 1255: 18.3 Assessment/Plan: As trough resulted within therapeutic range, will continue current regimen of vanco 2500mg q11hr for now. If condition or renal function were to change, or pt remains on prolonged course, will recheck trough or adjust as needed. Otherwise will continue to follow
--- NOTE | 2019-10-14 19:20 | NUR ---
Received patient calm and lying in bed. AAOX4. No signs of acute distress. Patient reported pain of 7/10. Will administer medication per order. Patient did not exhibit any SOB on room air. Right calf dressing clean, dry and intact. Right midline patent and intact. Safety measures initiated and call light within reach. Will continue to monitor.
[2019-10-14] MEDS: OXYCODONE/APAP 5-325 MG TABLET PO PRN (19:28)
[2019-10-14 20:36] VITALS: BP 145/83
[2019-10-15] MEDS: VANCOMYCIN IV 2,500 MG in IV DEXTROSE 5% 500 ML IV SCH ×2 (00:07→11:01)
[2019-10-15] MEDS: OXYCODONE/APAP 5-325 MG TABLET PO PRN ×4 (00:08→22:51)
[2019-10-15] MEDS: CEFEPIME HCL 1 G in IV DEXTROSE 5% 50 ML IV SCH ×3 (05:13→22:50)
[2019-10-15] MEDS: HYDROMORPHONE 1 MG/1 ML DISP.SYRIN IV PRN (05:14)
[2019-10-15 06:10] VITALS: BP 142/79
--- NOTE | 2019-10-15 07:00 | NUR ---
Patient calm and lying in bed, awake, alert and oriented. No signs of acute distress. C/o pain at 0514 administered Dilaudid as ordered. No signs of SOB. Patients need attended and met. Safety measures endorsed to oncoming nurse.
--- NOTE | 2019-10-15 08:00 | NUR ---
PATIENT SEEN AND EXAMINED BY DR VERDE WITH NO NEW ORDERS AT THIS TIME.
[2019-10-15 08:35] LABS: BASOPHILS % (AUTO) 0.3 % (0.0-2.0); EOSINOPHILS # (AUTO) 0.1 K/uL (0.0-0.7); EOSINOPHILS % (AUTO) 0.5 % (0.0-7.0); HEMATOCRIT 41.3 % (36.7-47.1); HEMOGLOBIN 13.4 g/dL (12.5-16.3); LYMPHOCYTES # (AUTO) 3.2 K/uL (20.0-40.0); LYMPHOCYTES % (AUTO) 22.6 % (20.5-51.5); MEAN CORPUSCULAR HEMOGLOBIN 28.7 uug (23.8-33.4); MEAN CORPUSCULAR HGB CONC 33 g/dL (32.5-36.3); MEAN CORPUSCULAR VOLUME 88.3 fL (73.0-96.2); MONOCYTES # (AUTO) 1.7 K/uL (2.0-10.0); MONOCYTES % (AUTO) 12.1 % (0.0-11.0); NEUTROPHILS # (AUTO) 9.3 K/uL (1.8-8.9); NEUTROPHILS % (AUTO) 64.5 % (38.5-71.5); PLATELET COUNT (AUTO) 283 K/uL (152-348); RED BLOOD CELL COUNT(AUTO) 4.67 MIL/uL (4.06-5.63); WHITE BLOOD COUNT (AUTO) 14.3 K/uL (3.6-10.2)
[2019-10-15] MEDS: LOSARTAN POTASSIUM 50 MG TABLET PO SCH (08:42)
[2019-10-15] MEDS: NICOTINE 21 MG/24HR PATCH TD SCH (08:42)
[2019-10-15] MEDS: AMLODIPINE 10 MG TABLET PO SCH (08:42)
[2019-10-15] MEDS: METOPROLOL SUCCINATE XL 25 MG TAB.SR.24H PO SCH (08:43)
[2019-10-15 08:45] LABS: CREATININE 1.1 mg/dL (0.6-1.3); MAGNESIUM 2.2 mg/dL (1.8-2.4); POTASSIUM 3.7 mmol/L (3.5-5.1)
--- NOTE | 2019-10-15 08:45 | NUR ---
Clinical Pharmacy Note: Vancomycin Dosing per Pharmacy Subjective: To continue Vancomycin IV on this 44 male patient for cellulitis Objective: BUN 15/Scr 1.0 (10/13) WBC 14.3 Temperature 98.4 ht 180 cm wt 189 kg Trough on 10/08 at 1138: 15.4 Trough on 10/11 at 1130: 21.5 Trough on 10/13 at 1255: 18.3 Assessment/Plan: Will continue current regimen of vanco 2500mg q11hr for now. If condition or renal function were to change, or pt remains on prolonged course, will recheck trough or adjust as needed. Otherwise will continue to follow
--- NOTE | 2019-10-15 11:03 | NUR ---
PATIENT C/O SEVERE RIGHT LEG PAIN MEDICATED WITH PERCOCET ORDERED MADE COMFORTABLE WILL CONTINUE TO OBSERVE.
[2019-10-15 12:00] VITALS: BP 136/80
[2019-10-15 16:00] VITALS: BP 131/72
--- NOTE | 2019-10-15 16:48 | NUR ---
MEDICATED WITH PERCOCET FOR PAIN IN HIS RIGHT LEG ORDERED WILL CONTINUE TO OBSERVE.
--- NOTE | 2019-10-15 17:15 | NUR ---
BERNICE DIRECTOR PHARMACEUTICAL HERE TO SEE PATIENT WITH NEW ORDERS AND NOTED
--- NOTE | 2019-10-15 18:47 | NUR ---
C/O FEELING VERY ANXIOUS DUE TO HIS LEG PAIN REQUESTED FOR ATIVAN GIVEN ORDERED MADE COMFORTABLE WILL CONTINUE TO OBSERVE.
[2019-10-15 20:29] VITALS: BP 150/93
[2019-10-16] MEDS: CEFEPIME HCL 1 G in IV DEXTROSE 5% 50 ML IV SCH ×2 (05:03→13:50)
[2019-10-16] MEDS: OXYCODONE/APAP 5-325 MG TABLET PO PRN ×2 (05:03→12:11)
[2019-10-16 05:45] VITALS: BP 149/91
--- NOTE | 2019-10-16 06:25 | NUR ---
patient slept intermittently throughout the night. AAOX3. no s/s of acute distress noted. v/s stable. BRYN midline remain patent and intact. IVF and antibiotics administered. No ASE from IV ABX. on RA at 97%. all needs met. safety measures met and call light within reach. complaint of pain x2 throughout shift. Percocet 2 tabs administered and tolerated well. will continue to monitor and assess.
--- NOTE | 2019-10-16 08:00 | NUR ---
Pt alert and oriented x 4. Dressing intact on right leg. Discussed plan of care with pt re: prevention of further infection on right leg cellulitis, fall precaution secondary to unbalance during ambulation and notify nursing for getting oob, and pain management for right leg. Pt verbalize understanding and agrees with plan of care.
[2019-10-16] MEDS: NICOTINE 21 MG/24HR PATCH TD SCH (08:56)
[2019-10-16] MEDS: LOSARTAN POTASSIUM 50 MG TABLET PO SCH (08:57)
[2019-10-16] MEDS: AMLODIPINE 10 MG TABLET PO SCH (08:57)
[2019-10-16] MEDS: METOPROLOL SUCCINATE XL 25 MG TAB.SR.24H PO SCH (08:57)
[2019-10-16] MEDS ORDERED: CARVEDILOL 12.5 MG TABLET PO SCH (09:15)
[2019-10-16 09:34] LABS: BILIRUBIN,TOTAL 0.8 mg/dL (0.2-1.0); POTASSIUM 4.1 mmol/L (3.5-5.1)
[2019-10-16] MEDS ORDERED: Oxycodone/Apap 5-325 Mg PO (11:49)
[2019-10-16] MEDS ORDERED: NICO-672 TD (11:49)
[2019-10-16] MEDS ORDERED: LEVO750T21 PO (11:49)
[2019-10-16] MEDS ORDERED: levoFLOXacin 750 MG TABLET PO ONE (12:00)
[2019-10-16 15:14] LABS: BASOPHILS # (AUTO) 0.1 K/uL (0.0-8.0); BASOPHILS % (AUTO) 0.6 % (0.0-2.0); EOSINOPHILS # (AUTO) 0.1 K/uL (0.0-0.7); EOSINOPHILS % (AUTO) 0.8 % (0.0-7.0); HEMATOCRIT 41.5 % (36.7-47.1); HEMOGLOBIN 13.3 g/dL (12.5-16.3); LYMPHOCYTES # (AUTO) 2.7 K/uL (20.0-40.0); LYMPHOCYTES % (AUTO) 22.7 % (20.5-51.5); MEAN CORPUSCULAR HEMOGLOBIN 28.1 uug (23.8-33.4); MEAN CORPUSCULAR HGB CONC 32 g/dL (32.5-36.3); MEAN CORPUSCULAR VOLUME 87.9 fL (73.0-96.2); MONOCYTES # (AUTO) 1.5 K/uL (2.0-10.0); MONOCYTES % (AUTO) 12.7 % (0.0-11.0); NEUTROPHILS # (AUTO) 7.7 K/uL (1.8-8.9); NEUTROPHILS % (AUTO) 63.2 % (38.5-71.5); PLATELET COUNT (AUTO) 320 K/uL (152-348); RED BLOOD CELL COUNT(AUTO) 4.72 MIL/uL (4.06-5.63); WHITE BLOOD COUNT (AUTO) 12.1 K/uL (3.6-10.2)
[2019-10-16 16:00] VITALS: BP 128/74
--- NOTE | 2019-10-16 16:00 | NUR ---
Pt discharge instructions given to patient. Pt is in no acute distress no sob upon discharge. Pt verbalized understanding. Instructed pt to follow up with cardiology and podiatry wound care where he was going prior. Pt verbalized understanding. PT refused to have dressing changed and pictures taken. Prescription given to patient. PT is to be set up for home health for wound care by clinical case manager tomorrow. Mid line taken off right brachial. Pt to follow up with his vaccinations with his pmd. Addendum: 10/16/19 at 1658 by HOMER DENISSE MCDONOUGH Gave wound care dressing and equipment given with pt. Dressing instructions given to patient.
--- NOTE | 2019-10-17 10:50 | NUR ---
Spoke with Leon professor of social work re: pt's need for home health eval. Leon case management to set up for home health on patient for today.
== END 2019-10-16 16:00 | disposition home or self-care (01) | DRG 197 ==
LOC: ER 19:22 → TELE3 10-08 00:54 → MEDSURG3 10-08 12:16
PROVIDERS: ADMIT Nurse Practitioner Acute Care; ATTEND Hospitalist
DX: I87.311 Chronic venous hypertension (idiopathic) with ulcer of right lower extremity (principal); E44.0 Moderate protein-calorie malnutrition; L03.115 Cellulitis of right lower limb; E66.01 Morbid (severe) obesity due to excess calories; E88.09 Other disorders of plasma-protein metabolism, not elsewhere classified; L97.819 Non-pressure chronic ulcer of other part of right lower leg with unspecified severity; I16.0 Hypertensive urgency; E87.6 Hypokalemia; Z87.891 Personal history of nicotine dependence; Z68.43 Body mass index [BMI] 50.0-59.9, adult; Z71.3 Dietary counseling and surveillance; R73.9 Hyperglycemia, unspecified; I87.2 Venous insufficiency (chronic) (peripheral); I89.0 Lymphedema, not elsewhere classified; Z91.19 Patient's noncompliance with other medical treatment and regimen; F12.90 Cannabis use, unspecified, uncomplicated; B96.5 Pseudomonas (aeruginosa) (mallei) (pseudomallei) as the cause of diseases classified elsewhere; Z71.6 Tobacco abuse counseling
CPT/HCPCS: 36415; 71045; 73590; 80307; 83735; 84100; 84443; 85025; 85730; 87070; 87075; 87077; 93307; A4217; A4663; G0378; G0480; J0330; J0360; J0692; J1100; J1170; J1885; J1940; J2060; J2250; J2270; J2405; J3010; J3370; J3490; J7030; J7050; J7060